=== PATIENT | male | born 2000 | race Caucasian/White ===

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

== ENCOUNTER → 2021-09-28 11:14 | Outpatient (CLI) | payer SELFPAY | PROVIDERS: PCP Pediatrics; Visit Provider Family Medicine | DX: Z23 Encounter for immunization (principal) ==